=== PATIENT | female | born 1985 | race Caucasian/White ===

== ENCOUNTER → 2017-07-07 | Outpatient (CLI) | payer BC ==
[~2017-07-07] MED LIST: CYCL10 PO; IBUP800 PO; LORA10ER PO; OXYACE5T PO; PREN-16 PO; PSEU30 PO; Prednisone20 MG PO
== END ==
LOC: LAB 14:36
DX: N39.0 Urinary tract infection, site not specified (principal)
CPT/HCPCS: 87077; 87086; 87186

== ENCOUNTER → 2021-01-28 | Outpatient (CLI) | payer BC | END | disposition home or self-care (01) | LOC: LAB 08:05 → LAB SHORT 08:05 | DX: R30.9 Painful micturition, unspecified (principal) | CPT/HCPCS: 87077; 87086; 87186 ==

== ENCOUNTER → 2021-12-24 | Outpatient (CLI) | payer BC | END | disposition home or self-care (01) | LOC: LAB SHORT 15:56 → LAB 15:56 | DX: R30.0 Dysuria (principal) | CPT/HCPCS: 87077; 87086; 87186 ==